=== PATIENT | male | born 1990 | race Caucasian/White ===

== ENCOUNTER 2018-10-03 07:46 | Inpatient (IN) | payer MEDICAID ==
[~2018-10-03] VITALS: Ht 180.3 cm; Wt 85.4 kg
[2018-10-03] VITALS (13 sets, daily range): BP systolic 106–156; BP diastolic 61–95
[2018-10-03] MEDS ORDERED: LORazepam 2 mg/ml vial IV ONE (07:50)
--- NOTE | 2018-10-03 07:56 | NUR ---
pt came in ems. pt aloc no responsive. 0754 etomidate 20 mg iv 0755 rocuronium 100mg iv given. pt intubated at 0757 size 8.0, 22 teeth.
[2018-10-03] MEDS ORDERED: rocuronium 10mg/ml inj IV ONE (08:00)
[2018-10-03] MEDS ORDERED: normal saline 1000ML IV soln IVB ONE (08:00)
[2018-10-03] MEDS ORDERED: etomidate 2mg/ml inj. ONE (08:00)
[2018-10-03] MEDS ORDERED: levetiracetam inj 1,000 MG in normal saline 100ml IV soln 90 ML IV ONE (08:00)
[2018-10-03 08:10] LABS: ABG BASE EXCESS -14.8 mmol/L (-2.0-3.0); ABG HCO3 15.1 mmol/L (22.0-26.0); ABG OXYGEN SATURATION 99.2 % (95-98); ABG PCO2 (T) 50.3 mmHg (35.0-45.0); ABG PH (T) 7.094 (7.350-7.450); ABG PO2 (T) 307.3 mmHg (83-108); ALLEN'S TEST Positive; FCOHb 0.4 % (0.5-1.5); FLOW 15 L/min; FMetHb 0.4 % (0.3-1.12); FO2Hb 98.4 % (94-100); TOTAL HEMOGLOBIN 15.4 G/dl (14.0-17.9)
[2018-10-03 08:22] LABS: BASOPHILS # (AUTO) 0.1 X10'3 (0-0.2); BASOPHILS % (AUTO) 0.9 % (0-1); EOSINOPHILS # (AUTO) 0.4 X10'3 (0-0.9); EOSINOPHILS % (AUTO) 3.5 % (0-6); HEMATOCRIT 49.2 % (42.0-52.0); HEMOGLOBIN 15.5 g/dl (14.0-17.9); LYMPHOCYTES # (AUTO) 1.9 X10'3 (1.1-4.8); LYMPHOCYTES % (AUTO) 17.2 % (21-51); MEAN CORPUSCULAR HEMOGLOBIN 24.9 PG (27.0-31.0); MEAN CORPUSCULAR HGB CONC 31.5 g/dL (33.0-36.5); MEAN CORPUSCULAR VOLUME 79.1 FL (78-98); MEAN PLATELET VOLUME 8.6 FL (7.4-10.4); MONOCYTES # (AUTO) 0.9 X10'3 (0-0.9); NEUTROPHILS # (AUTO) 7.9 X10'3 (1.8-7.7); NEUTROPHILS % (AUTO) 70.4 % (42-75); PLATELET COUNT 188 X10'3 (140-440); RED BLOOD COUNT 6.22 X10'6 (4.70-6.10); RED CELL DISTRIBUTION WIDTH 15.4 % (11.5-14.5); WHITE BLOOD COUNT 11.2 X10'3 (4.5-11.0)
[2018-10-03] MEDS: propofol 1000mg/100ml bottle 100 ML IV SCH ×2 (08:27→19:48)
[2018-10-03 08:30] LABS: ALANINE AMINOTRANSFERASE 31 U/L (12-78); ALBUMIN 3.6 G/DL (3.4-5.0); ALBUMIN/GLOBULIN RATIO 0.9 (1.1-1.5); ALKALINE PHOSPHATASE 150 IU/L (46-116); ANION GAP 20 (8-16); ASPARTATE AMINO TRANSFERASE 14 U/L (10-37); BILIRUBIN,TOTAL 0.4 MG/DL (0.1-1.0); BLOOD UREA NITROGEN 18 MG/DL (7-18); BUN/CREATININE RATIO 11.8 (5.4-32.0); CALCIUM 8.6 MG/DL (8.5-10.1); CHLORIDE 106 MMOL/L (99-107); CREATININE 1.53 MG/DL (0.60-1.10); GLUCOSE 122 MG/DL (70-104); SODIUM 143 MMOL/L (135-145); TOTAL PROTEIN 7.5 G/DL (6.4-8.2); eGFR 54 ML/MIN
[2018-10-03 08:33] LABS: ETHANOL < 0.010 GM/DL (0.0-0.010); TROPONIN I < 0.04 NG/ML (0.0-0.05)
--- NOTE | 2018-10-03 08:54 | NUR ---
tube placed to 26 to the teeth.
--- NOTE | 2018-10-03 08:54 | NUR ---
SHEET [facility]URNER CALLED BACK 30 MINUTE ETA
[2018-10-03 08:55] LABS: CLARITY,URINE CLOUDY (Clear); COLOR,URINE YELLOW (Yellow); GLUCOSE, URINE NEGATIVE (Neg); KETONES,URINE NEGATIVE (Neg); LEUKOCYTE ESTERASE ,URINE NEGATIVE (Neg); NITRITES, URINE NEGATIVE (Neg); OCCULT BLOOD,URINE SMALL (Neg); PROTEIN,URINE 30 mg/dl (Neg); UROBILINOGEN,URINE 0.2 E.U/dL (0.2-1.0)
[2018-10-03 08:56] LABS: UA COLLECTION TYPE STRAIGHT CATH
[2018-10-03] MEDS ORDERED: atropine 0.1mg/ml 10ml syringe ONE (09:00)
[2018-10-03 09:01] LABS: ABG HCO3 21.2 mmol/L (22.0-26.0); ABG OXYGEN SATURATION 91.1 % (95-98); ABG PCO2 (T) 52.8 mmHg (35.0-45.0); ABG PH (T) 7.221 (7.350-7.450); ABG PO2 (T) 68.5 mmHg (83-108); ALLEN'S TEST Positive; FCOHb 0.5 % (0.5-1.5); FMetHb 0.3 % (0.3-1.12); FO2Hb 90.4 % (94-100); MINUTE VOLUME 6 L/min; PEEP 10 cm H2O; RESPIRATORY RATE 14 b/min; RESPIRATORY RATE (OBSERVED) 14 b/min; TIDAL VOLUME 400 mL; TOTAL HEMOGLOBIN 15.3 G/dl (14.0-17.9)
[2018-10-03 09:07] LABS: URINE AMPHETAMINE SCREEN NEGATIVE (Neg); URINE BARBITUATE SCREEN NEGATIVE (Neg); URINE BENZODIAZEPINES SCREEN POSITIVE (Neg); URINE CANNABINOID SCREEN NEGATIVE (Neg); URINE COCAINE SCREEN NEGATIVE (Neg); URINE METHADONE SCREEN NEGATIVE (Neg); URINE OPIATE SCREEN NEGATIVE (Neg); URINE PHENCYCLIDINE SCREEN NEGATIVE (Neg)
[2018-10-03] MEDS ORDERED: ondansetron/PF 4mg/2ml inj IV PRN (09:10)
[2018-10-03] MEDS ORDERED: magnesium Cl slow-release 64mg tablet PO PRN (09:10)
[2018-10-03] MEDS ORDERED: pantoprazole 40 MG vial IV SCH (09:10)
[2018-10-03] MEDS ORDERED: magnesium 2GM in 50ml NS 50 ML IV PRN (09:10)
[2018-10-03] MEDS: K, MAG and/or Phos replacement - Verify level? MC SCH (09:10)
[2018-10-03] MEDS ORDERED: metoclopramide 5 mg/ml inj IV PRN (09:10)
[2018-10-03] MEDS ORDERED: sodium phosphate inj. 30 MMOL in dextrose 5%-water 250 ML IV PRN (09:10)
[2018-10-03] MEDS ORDERED: potassium Cl 20 mEq SR tablet PO PRN ×2 (09:10)
[2018-10-03] MEDS ORDERED: Neutra Phos packet PO PRN (09:10)
[2018-10-03] MEDS ORDERED: magnesium hydroxide 30ml (MOM) UD suspension PO PRN (09:10)
[2018-10-03] MEDS ORDERED: sodium phosphate inj. 15 MMOL in dextrose 5%-water 150 ML IV PRN (09:10)
[2018-10-03] MEDS ORDERED: magnesium 4gm in 100ml NS 100 ML IV PRN (09:10)
[2018-10-03] MEDS ORDERED: acetaminophen 325mg tablet PO PRN ×2 (09:10)
[2018-10-03 09:12] LABS: WBC,URINE 0-4 /HPF (0-4)
[2018-10-03 09:13] LABS: BACTERIA,URINE NONE SEEN /HPF (Neg); MUCUS STRANDS FEW /LPF (Neg); SQUAMOUS EPITHELIAL CELL,UR FEW /LPF (FEW); TRANSITIONAL EPI CELLS,URINE FEW /HPF
[2018-10-03 09:14] LABS: AMORPHOUS URATES 3+
[2018-10-03 09:46] LABS: CREATINE KINASE 61 U/L (39-308)
[2018-10-03 09:48] LABS: PARTIAL THROMBOPLASTIN TIME 27 SECONDS (22-32)
[2018-10-03] MEDS ORDERED: LEVE10002 PO (09:48)
[2018-10-03] MEDS ORDERED: LACO200T2 PO (09:49)
[2018-10-03] MEDS ORDERED: ALIGN PROBIOTIC PO (09:50)
[2018-10-03] MEDS ORDERED: ZONI100C6 PO (09:51)
[2018-10-03] MEDS ORDERED: LORA1TAB PO (09:53)
[2018-10-03] MEDS ORDERED: CLOR3.755 PO (09:56)
[2018-10-03] MEDS ORDERED: CLORAZEPATE DIPOTASSIUM PO PRN (11:10)
[2018-10-03] MEDS ORDERED: LORazepam 1 MG tablet PO PRN (11:10)
[2018-10-03] MEDS: ESOMEPRAZOLE 40 MG VIAL IV SCH (11:33)
[2018-10-03] MEDS: enoxaparin 40mg/0.4ml syringe SUBCUT SCH (11:34)
--- NOTE | 2018-10-03 12:36 | NUR ---
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 NG tube currently in place for meds. Pending EEG. Will monitor for nutrition support needs if prolonged intubation; recs below. Rec: 1. IF NGTF; Vital high protein at 85ml/hr goal 2. IF TF; prealbumin Q /, daily wts 3. advance diet per [employer]/MD to regular Addendum: 10/03/18 at [address] Amended: Links added.
[2018-10-03] MEDS: VIMPAT 200 MG PO SCH ×2 (12:43→23:05)
[2018-10-03] MEDS: sodium chloride 0.45% 1,000 ML IV SCH ×3 (12:43→19:44)
[2018-10-03] MEDS ORDERED: LORazepam 2 mg/ml vial IV PRN (13:00)
[2018-10-03] MEDS ORDERED: LEVETIRACETAM PO SCH (20:00)
[2018-10-03] MEDS ORDERED: levetiracetam inj 1,000 MG in normal saline 100ml IV soln 90 ML IV SCH (20:00)
--- NOTE | 2018-10-03 21:36 | NUR ---
1830..Patient in room CICU 2006. I have received report from Debi CALDERÓN and had the opportunity to ask questions and assume patient care.
--- NOTE | 2018-10-03 22:04 | NUR ---
1999..Assessment as noted, diprivan increased for what appears to be seizure activity, facial twitching and eye twitching, with good effect.
[2018-10-04] VITALS (24 sets, daily range): BP systolic 102–142; BP diastolic 62–97
[2018-10-04 03:20] LABS: ABG BASE EXCESS -1.6 mmol/L (-2.0-3.0); ABG HCO3 20.8 mmol/L (22.0-26.0); ABG OXYGEN SATURATION 99.1 % (95-98); ABG PCO2 (T) 28.4 mmHg (35.0-45.0); ABG PH (T) 7.481 (7.350-7.450); ABG PO2 (T) 175.2 mmHg (83-108); ALLEN'S TEST Positive; FCOHb 0.3 % (0.5-1.5); FMetHb 0.3 % (0.3-1.12); FO2Hb 98.5 % (94-100); MINUTE VOLUME 7 L/min; PATIENT TEMPERATURE 36.6; PEEP 10 cm H2O; RESPIRATORY RATE 14 b/min; RESPIRATORY RATE (OBSERVED) 14 b/min; TIDAL VOLUME 500 mL; TOTAL HEMOGLOBIN 13.9 G/dl (14.0-17.9)
[2018-10-04] MEDS: sodium chloride 0.45% 1,000 ML IV SCH ×3 (04:40→21:36)
--- NOTE | 2018-10-04 04:45 | NUR ---
0400..No changes noted.
--- NOTE | 2018-10-04 04:45 | NUR ---
0000..No changes noted.
[2018-10-04] MEDS: propofol 1000mg/100ml bottle 100 ML IV SCH (05:09)
[2018-10-04 05:56] LABS: PARTIAL THROMBOPLASTIN TIME 31 SECONDS (22-32)
[2018-10-04 05:57] LABS: BASOPHILS # (AUTO) 0.1 X10'3 (0-0.2); BASOPHILS % (AUTO) 0.8 % (0-1); EOSINOPHILS # (AUTO) 0.3 X10'3 (0-0.9); EOSINOPHILS % (AUTO) 3.9 % (0-6); HEMATOCRIT 43.1 % (42.0-52.0); HEMOGLOBIN 14.3 g/dl (14.0-17.9); LYMPHOCYTES # (AUTO) 1.6 X10'3 (1.1-4.8); LYMPHOCYTES % (AUTO) 24.5 % (21-51); MEAN CORPUSCULAR HEMOGLOBIN 25.8 PG (27.0-31.0); MEAN CORPUSCULAR HGB CONC 33.1 g/dL (33.0-36.5); MEAN CORPUSCULAR VOLUME 77.9 FL (78-98); MONOCYTES # (AUTO) 0.6 X10'3 (0-0.9); MONOCYTES % (AUTO) 9.8 % (2-12); NEUTROPHILS # (AUTO) 3.9 X10'3 (1.8-7.7); PLATELET COUNT 101 X10'3 (140-440); RED BLOOD COUNT 5.54 X10'6 (4.70-6.10); RED CELL DISTRIBUTION WIDTH 15.3 % (11.5-14.5); WHITE BLOOD COUNT 6.4 X10'3 (4.5-11.0)
[2018-10-04 06:01] LABS: ALANINE AMINOTRANSFERASE 28 U/L (12-78); ALBUMIN 3.2 G/DL (3.4-5.0); ALBUMIN/GLOBULIN RATIO 0.9 (1.1-1.5); ALKALINE PHOSPHATASE 118 IU/L (46-116); ANION GAP 14 (8-16); ASPARTATE AMINO TRANSFERASE 10 U/L (10-37); BILIRUBIN,TOTAL 0.9 MG/DL (0.1-1.0); BLOOD UREA NITROGEN 16 MG/DL (7-18); BUN/CREATININE RATIO 20.5 (5.4-32.0); CALCIUM 9.2 MG/DL (8.5-10.1); CHLORIDE 105 MMOL/L (99-107); CREATININE 0.78 MG/DL (0.60-1.10); GLUCOSE 64 MG/DL (70-104); MAGNESIUM 1.9 MG/DL (1.5-2.4); PHOSPHORUS 2.9 MG/DL (2.3-4.5); POTASSIUM 3.5 MMOL/L (3.5-5.1); SODIUM 142 MMOL/L (135-145); TOTAL CARBON DIOXIDE 23.4 MMOL/L (24-32); TOTAL PROTEIN 6.8 G/DL (6.4-8.2); TRIGLYCERIDES 126 MG/DL (20-135); eGFR > 90 ML/MIN
--- NOTE | 2018-10-04 06:30 | NUR ---
Patient in room CICU 2006. I have received report from Anne Easley and had the opportunity to ask questions and assume patient care.
--- NOTE | 2018-10-04 06:34 | NUR ---
0630..Problems reprioritized. Patient report given, questions answered & plan of care reviewed with Feli CALDERÓN.
[2018-10-04] MEDS ORDERED: zonisamide 100mg capsule PO SCH ×4 (08:00→21:08)
[2018-10-04] MEDS: mineral oil/petrolatum ophthal oint EACHEYE SCH ×3 (08:00→21:36)
[2018-10-04] MEDS: VIMPAT 200 MG PO SCH ×4 (08:00→20:32)
[2018-10-04] MEDS: levetiracetam-NS 1000mg/100ml 100 ML IV SCH ×2 (08:20→20:25)
[2018-10-04] MEDS: ESOMEPRAZOLE 40 MG VIAL IV SCH (08:20)
[2018-10-04] MEDS: enoxaparin 40mg/0.4ml syringe SUBCUT SCH (08:21)
[2018-10-04] MEDS: K, MAG and/or Phos replacement - Verify level? MC SCH (08:22)
--- NOTE | 2018-10-04 09:56 | NUR ---
829 Wound care saw patient, hernia present at ostomy site, protrusion noted under skin approx 5in in diameter.899 Echo completed, tech reports EF approx 60- 70%. EKG done, patient no longer paced at this time. 944 Up with physical therapy, c/o dizziness, only able to walk to doorway. Paced again. 1000- Spoke with Cami in case management re pt needs upon discharge. Patient weak. Addendum: 10/04/18 at 1229 by Smooth Owusu RN Disregard note above, wrong patient 1030- rounds completed. ok to start scopalamine patch for secretions, decrease rate on IV fluids to 100. MD to consult with patient neuro doc in [place]. keppra and other anticonvulsant trough levels to be drawn. Decrease FIO2 to 21% and PEEP to 5.
[2018-10-04] MEDS ORDERED: scopolamine 1.5mg patch.TD72 TD SCH (10:50)
--- NOTE | 2018-10-04 13:06 | NUR ---
1230- Dr Kaba wants home meds verified with mother of patient. Verified that clorazepic was only used twice in his life , per [facility] pharmacist it is on label specifically to not use with ativan. Sendy has spoken with Dr. Stahl (neurologist in [place]), Dr Stahl possible wants to transfer patient to [facility]. Change vimpat to 200mg TID Change zonegran to 200mg BID. Called patients mother to verify home meds and to have her come in to conference with Dr Kaba. Mother in store. Knows to come in, in supposed to call to verify meds.
--- NOTE | 2018-10-04 15:12 | NUR ---
1340- Dr Kaba here. home zonegran was actually 200 mg daily, to be increased to 300 mg at HS. Vitamin D level ordered. Stop diprivan/ place on spontaneous, if no seizure activity noted after 1 hour, call . Orders for ativan IV PRN. 1440- No clonic seizure activity noted. ok'd for extubation. Some spastic motion in right arm. Mother does not recognize this as his normal seizure activity.
[2018-10-04] MEDS: LORazepam 2 mg/ml vial IV PRN ×2 (15:40→23:52)
--- NOTE | 2018-10-04 16:10 | NUR ---
1540- increased clonic activity noted in bilateral hands, arms restrained. BP elevated, HR elevated. Alerted MD. Extubation on hold for tonight. Medicated with 2mg of ativan followed with another 2. Focal seizure activity stopped. Maintaining on spontaneous. Discussed with family and MD spoke with family also.
--- NOTE | 2018-10-04 18:25 | NUR ---
Problems reprioritized. Patient report given, questions answered & plan of care reviewed with Anne Sierra
--- NOTE | 2018-10-04 18:30 | NUR ---
1830..Patient in room CICU 2006. I have received report from Feli CALDERÓN and had the opportunity to ask questions and assume patient care.
--- NOTE | 2018-10-04 22:19 | NUR ---
1999..Assessment as noted, no seizures noted at this time.
--- NOTE | 2018-10-04 23:55 | NUR ---
8195..Focal seizures noted to face, facial and eye twitching noted, Ativan given as ordered with good effect, no other changes noted.
[2018-10-05] VITALS (24 sets, daily range): BP systolic 109–149; BP diastolic 55–92
[2018-10-05] MEDS: mineral oil/petrolatum ophthal oint EACHEYE SCH ×3 (02:00→14:00)
[2018-10-05 03:55] LABS: ABG BASE EXCESS -4.4 mmol/L (-2.0-3.0); ABG HCO3 19.3 mmol/L (22.0-26.0); ABG OXYGEN SATURATION 96.4 % (95-98); ABG PCO2 (T) 32.2 mmHg (35.0-45.0); ABG PH (T) 7.397 (7.350-7.450); ALLEN'S TEST Positive; FCOHb 0.4 % (0.5-1.5); FMetHb 0.3 % (0.3-1.12); FO2Hb 95.7 % (94-100); MINUTE VOLUME 7 L/min; PATIENT TEMPERATURE 37.3; PEEP 5 cm H2O; RESPIRATORY RATE 12 b/min; RESPIRATORY RATE (OBSERVED) 12 b/min; TIDAL VOLUME 500 mL; TOTAL HEMOGLOBIN 13.7 G/dl (14.0-17.9)
--- NOTE | 2018-10-05 06:22 | NUR ---
0625..Problems reprioritized. Patient report given, questions answered & plan of care reviewed with Feli CALDERÓN.
--- NOTE | 2018-10-05 06:41 | NUR ---
Patient in room CICU 2006. I have received report from Anne Easley and had the opportunity to ask questions and assume patient care.
[2018-10-05 06:42] LABS: PARTIAL THROMBOPLASTIN TIME 32 SECONDS (22-32)
[2018-10-05 06:51] LABS: ALANINE AMINOTRANSFERASE 27 U/L (12-78); ALBUMIN 3.5 G/DL (3.4-5.0); ALBUMIN/GLOBULIN RATIO 0.8 (1.1-1.5); ALKALINE PHOSPHATASE 128 IU/L (46-116); ANION GAP 16 (8-16); ASPARTATE AMINO TRANSFERASE 8 U/L (10-37); BILIRUBIN,TOTAL 0.8 MG/DL (0.1-1.0); BLOOD UREA NITROGEN 6 MG/DL (7-18); BUN/CREATININE RATIO 7.9 (5.4-32.0); CALCIUM 8.9 MG/DL (8.5-10.1); CHLORIDE 104 MMOL/L (99-107); CREATININE 0.76 MG/DL (0.60-1.10); GLUCOSE 61 MG/DL (70-104); MAGNESIUM 1.8 MG/DL (1.5-2.4); PHOSPHORUS 2.9 MG/DL (2.3-4.5); POTASSIUM 3.8 MMOL/L (3.5-5.1); SODIUM 142 MMOL/L (135-145); TOTAL CARBON DIOXIDE 21.8 MMOL/L (24-32); TOTAL PROTEIN 7.7 G/DL (6.4-8.2); eGFR > 90 ML/MIN
[2018-10-05 07:33] LABS: BASOPHILS % (AUTO) 0.6 % (0-1); EOSINOPHILS # (AUTO) 0.4 X10'3 (0-0.9); EOSINOPHILS % (AUTO) 5.1 % (0-6); HEMATOCRIT 47.7 % (42.0-52.0); HEMOGLOBIN 15.5 g/dl (14.0-17.9); LYMPHOCYTES # (AUTO) 1.3 X10'3 (1.1-4.8); LYMPHOCYTES % (AUTO) 17.1 % (21-51); MEAN CORPUSCULAR HEMOGLOBIN 25.3 PG (27.0-31.0); MEAN CORPUSCULAR HGB CONC 32.4 g/dL (33.0-36.5); MEAN CORPUSCULAR VOLUME 78.1 FL (78-98); MEAN PLATELET VOLUME 9.2 FL (7.4-10.4); MONOCYTES # (AUTO) 0.9 X10'3 (0-0.9); MONOCYTES % (AUTO) 11.6 % (2-12); NEUTROPHILS # (AUTO) 4.9 X10'3 (1.8-7.7); NEUTROPHILS % (AUTO) 65.6 % (42-75); PLATELET COUNT 115 X10'3 (140-440); RED CELL DISTRIBUTION WIDTH 15.2 % (11.5-14.5); WHITE BLOOD COUNT 7.5 X10'3 (4.5-11.0)
[2018-10-05] MEDS: K, MAG and/or Phos replacement - Verify level? MC SCH (08:00)
[2018-10-05] MEDS: sodium chloride 0.45% 1,000 ML IV SCH (08:29)
[2018-10-05] MEDS ORDERED: glucagon, human recombinant 1mg kit SUBCUT PRN (08:40)
[2018-10-05] MEDS ORDERED: dextrose 50%-water 50ml dispensing syringe IV PRN (08:40)
[2018-10-05] MEDS ORDERED: dextrose ORAL solution 15 GM/59 ML bottle PO PRN ×2 (08:40)
[2018-10-05] MEDS ORDERED: dextrose 50%-water 50ml dispensing syringe IV ONE (08:46)
[2018-10-05] MEDS: dextrose 50%-water 50ml dispensing syringe IV PRN ×2 (08:47→12:41)
[2018-10-05] MEDS: enoxaparin 40mg/0.4ml syringe SUBCUT SCH (09:08)
[2018-10-05] MEDS: levetiracetam-NS 1000mg/100ml 100 ML IV SCH ×2 (09:08→19:57)
[2018-10-05] MEDS: VIMPAT 200 MG PO SCH ×3 (09:11→17:17)
--- NOTE | 2018-10-05 10:52 | NUR ---
0950- Patient extubated and on RA. Breath sounds coarse but clear. Strong productive cough, family at bedside. F/C dc'd. Plan is for resume diet, PT eval and treat with potential discharge home tomorrow.
--- NOTE | 2018-10-05 11:39 | NUR ---
1130- Pts mom states patient just had a 15 second seizure, had some right arm stiffening and sat up a little, "normal seizure activity". Resolved on it's own, patient resting comfortably, eyes closed. VSS.
--- NOTE | 2018-10-05 13:29 | NUR ---
1230- Small seizure lasted 12 seconds and resolved. More awake. VSS 1300- working on some water and ice cream, able to take 1300 med with yogurt with great resistance. good swallow. BGL was 61 medicated with 1/2 amp D50. MD states may change IV fluid to D5 1/2 if needed for blood sugar.
[2018-10-05] MEDS: dextrose 5%-1/2 normal saline 1,000 ML IV SCH (15:55)
[2018-10-05] MEDS ORDERED: zonisamide 100mg capsule PO SCH ×2 (17:00→21:00)
--- NOTE | 2018-10-05 18:21 | NUR ---
Problems reprioritized. Patient report given, questions answered & plan of care reviewed with Phillip. Held 1700 accucheck. Patient has D51/2 at 100 hour and mother fed him a whole bowl of mashed potatoes.
--- NOTE | 2018-10-05 18:30 | NUR ---
Patient in room CICU 2006. I have received report from Smooth CALDERÓN and had the opportunity to ask questions and assume patient care.
--- NOTE | 2018-10-05 20:55 | NUR ---
Rash noted on patient's neck, forearms, upper back and inner aspect of L thigh. Pt restless, pulled out bilateral IV's, scratching at reddened areas. Dario Buchanan notified, orders received.
[2018-10-05] MEDS ORDERED: diphenhydrAMINE 50 mg/ml inj IV ONE (21:00)
[2018-10-05] MEDS ORDERED: famotidine/PF 10 mg/ml inj IV ONE (21:00)
[2018-10-06] VITALS (10 sets, daily range): BP systolic 110–143; BP diastolic 66–101
[2018-10-06] MEDS: dextrose 5%-1/2 normal saline 1,000 ML IV SCH (02:21)
[2018-10-06 06:04] LABS: PARTIAL THROMBOPLASTIN TIME 31 SECONDS (22-32)
[2018-10-06 06:08] LABS: BASOPHILS % (AUTO) 0.7 % (0-1); EOSINOPHILS # (AUTO) 0.5 X10'3 (0-0.9); EOSINOPHILS % (AUTO) 8.1 % (0-6); HEMATOCRIT 41.8 % (42.0-52.0); HEMOGLOBIN 13.8 g/dl (14.0-17.9); LYMPHOCYTES # (AUTO) 1.4 X10'3 (1.1-4.8); LYMPHOCYTES % (AUTO) 24.6 % (21-51); MEAN CORPUSCULAR HEMOGLOBIN 25.6 PG (27.0-31.0); MEAN CORPUSCULAR VOLUME 77.4 FL (78-98); MEAN PLATELET VOLUME 8.5 FL (7.4-10.4); MONOCYTES # (AUTO) 0.7 X10'3 (0-0.9); MONOCYTES % (AUTO) 12.4 % (2-12); NEUTROPHILS # (AUTO) 3.1 X10'3 (1.8-7.7); NEUTROPHILS % (AUTO) 54.2 % (42-75); PLATELET COUNT 115 X10'3 (140-440); RED CELL DISTRIBUTION WIDTH 14.8 % (11.5-14.5); WHITE BLOOD COUNT 5.8 X10'3 (4.5-11.0)
[2018-10-06 06:12] LABS: ALANINE AMINOTRANSFERASE 22 U/L (12-78); ALBUMIN/GLOBULIN RATIO 0.8 (1.1-1.5); ALKALINE PHOSPHATASE 105 IU/L (46-116); ANION GAP 11 (8-16); ASPARTATE AMINO TRANSFERASE 9 U/L (10-37); BILIRUBIN,TOTAL 0.6 MG/DL (0.1-1.0); BLOOD UREA NITROGEN 4 MG/DL (7-18); BUN/CREATININE RATIO 5.7 (5.4-32.0); CALCIUM 8.3 MG/DL (8.5-10.1); CHLORIDE 106 MMOL/L (99-107); GLUCOSE 111 MG/DL (70-104); MAGNESIUM 1.5 MG/DL (1.5-2.4); PHOSPHORUS 3.2 MG/DL (2.3-4.5); POTASSIUM 3.3 MMOL/L (3.5-5.1); SODIUM 141 MMOL/L (135-145); TOTAL CARBON DIOXIDE 23.9 MMOL/L (24-32); TOTAL PROTEIN 6.8 G/DL (6.4-8.2); eGFR > 90 ML/MIN
--- NOTE | 2018-10-06 06:29 | NUR ---
Small seizure witnessed, short duration:10sec. Desatted briefly to 88%, briefly tachycardiac to low 100's. Awakened quickly, able to cough and clear secretions.
--- NOTE | 2018-10-06 06:35 | NUR ---
Problems reprioritized. Patient report given, questions answered & plan of care reviewed with Torrey CALDERÓN.
[2018-10-06] MEDS: ESOMEPRAZOLE 40 MG VIAL IV SCH (07:48)
[2018-10-06] MEDS: levetiracetam-NS 1000mg/100ml 100 ML IV SCH (07:48)
[2018-10-06] MEDS: enoxaparin 40mg/0.4ml syringe SUBCUT SCH (07:50)
[2018-10-06] MEDS: VIMPAT 200 MG PO SCH (08:25)
[2018-10-06] MEDS: K, MAG and/or Phos replacement - Verify level? MC SCH (08:46)
--- NOTE | 2018-10-06 10:30 | NUR ---
patient discharged home with family patient taken out on wheelchair all lines d/c'd
[2018-10-08] MEDS ORDERED: methylnaltrexone br 12mg/0.6ml inj***SubQ only SQ SCH (08:00)
== END 2018-10-06 10:30 | disposition home or self-care (01) | DRG 53 ==
LOC: ER 07:47 → CICU 2S 11:57
PROVIDERS: ADMIT Internal Medicine Critical Care Medicine; ATTEND Internal Medicine Critical Care Medicine
PROC: 0BH17EZ Insertion of Endotracheal Airway into Trachea, Via Natural or Artificial Opening (ICD-10-PCS; principal; 2018-10-03)
PROC: 5A1945Z Respiratory Ventilation, 24-96 Consecutive Hours (ICD-10-PCS; 2018-10-03)
PROC: 4A00X4Z Measurement of Central Nervous Electrical Activity, External Approach (ICD-10-PCS; 2018-10-03)
DX: G40.811 Lennox-Gastaut syndrome, not intractable, with status epilepticus (principal); J96.90 Respiratory failure, unspecified, unspecified whether with hypoxia or hypercapnia; F84.0 Autistic disorder; J98.11 Atelectasis; R62.59 Other lack of expected normal physiological development in childhood; E87.2 Acidosis
CPT/HCPCS: 31500; 36415; 36600; 70450; 71045; 80053; 80177; 80305; 80320; 81001; 82140; 82306; 82550; 82803; 82948; 83605; 83735; 84100; 84478; 84484; 85018; 85025; 85610; 85730; 87070; 87081; 93005; 94002; 94003; 94640; 94760; 95816; 96365; 96372; 96375; 99291; G0378; J0461; J1200; J1650; J1953; J2060; J2704; J3490

== ENCOUNTER 2023-07-18 13:56 | Emergency (ER) | payer MEDICAID ==
[~2023-07-18] VITALS: Ht 170.2 cm; Wt 84.1 kg
[~2023-07-18 13:56] MED LIST: ALIGN PROBIOTIC PO; CLOR3.755 PO; LACO200T2 PO; LEVE10002 PO; LORA1TAB PO; ZONI100C87 PO
[2023-07-18 14:00] VITALS: TEMP 97.6
[2023-07-18 16:05] VITALS: BP 120/90; PULSE 99; RESP 18; O2SAT 98
== END 2023-07-18 16:07 | disposition home or self-care (01) ==
LOC: ER 13:56
DX: T17.928A Food in respiratory tract, part unspecified causing other injury, initial encounter (principal); Z88.8 Allergy status to other drugs, medicaments and biological substances; W44.F3XA Food entering into or through a natural orifice, initial encounter; Y93.89 Activity, other specified; Y92.89 Other specified places as the place of occurrence of the external cause; Y99.8 Other external cause status
CPT/HCPCS: 71045; 99283